=== PATIENT | male | born 1940 ===

== ENCOUNTER 2017-07-12 16:01 | Observation (INO) | payer BC, MEDICARE ==
--- NOTE | 2017-07-12 16:38 | ED ---
General Adult HPI - General Chief complaint: Extremity Problem,Nontraumatic Stated complaint: leg pain Time Seen by Provider: 07/12/17 16:27 Source: patient, RN notes reviewed Mode of arrival: ambulatory Limitations: no limitations - History of Present Illness Initial comments: Patient is a 76-year-old male who presents emergency room today with a chief complaint of right lower leg pain over the last 10 days. He does admit that it started on the anterior right dsouza. States that it progressed even behind the right knee. States worse with ambulation. Patient also admits that his had some shortness of breath that he feels when he is up and moving around. He does admit to recent travel over with a long car ride to [place] and [facility]. Patient states he saw his family doctor earlier today was advised coming to the emergency room to have a blood clot ruled out. Patient denies any other complaints at this time. He denies any pain. Denies any pleuritic pain. States is comfortable. Only has symptoms with ambulation. Patient denies any recent fever, chills, chest pain, back pain, abdominal pain, nausea or vomiting, numbness or tingling, dysuria or hematuria, constipation or diarrhea, headaches or visual changes, or any other complaints. - Related Data Home Medications Medication Instructions Recorded Confirmed glipiZIDE [Glucotrol] 5 mg PO AC-BRKFST 05/01/14 07/12/17 Amiodarone HCl [Amiodarone HCl] 100 mg PO DAILY 05/19/14 07/12/17 Aspirin EC [Ecotrin Low Dose] 81 mg PO DAILY 07/12/17 07/12/17 Atorvastatin [Lipitor] 40 mg PO HS 07/12/17 07/12/17 Ferrous Sulfate [Feosol] 325 mg PO DAILY 07/12/17 07/12/17 Hydrochlorothiazide 12.5 mg PO DAILY 07/12/17 07/12/17 Metoprolol Succinate (ER) [Toprol 50 mg PO DAILY 07/12/17 07/12/17 Xl] Prasugrel [Effient] 10 mg PO HS 07/12/17 07/12/17 hydrALAZINE HCL [Hydralazine HCl] 25 mg PO BID 07/12/17 07/12/17 Allergies Allergy/AdvReac Type Severity Reaction Status Date / Time No Known Allergies Allergy Verified 07/12/17 17:10 Review of Systems ROS Statement: Those systems with pertinent positive or pertinent negative responses have been documented in the HPI. ROS Other: All systems not noted in ROS Statement are negative. Past Medical History Past Medical History: Coronary Artery Disease (CAD), Diabetes Mellitus, Hypertension, Myocardial Infarction ([place]), Renal Disease Additional Past Medical History / Comment(s): ANEMIA, Last Myocardial Infarction Date:: 05-01-14 History of Any Multi-Drug Resistant Organisms: None Reported Past Surgical History: No Surgical Hx Reported, Heart Catheterization With Stent Date of Last Stent Placement:: 2013 Past Psychological History: No Psychological Hx Reported Smoking Status: Former smoker Past Alcohol Use History: None Reported Past Drug Use History: None Reported General Exam - General Exam Comments Initial Comments: General: The patient is awake and alert, in no distress, and does not appear acutely ill. Eye: Pupils are equal, round and reactive to light, extra-ocular movements are intact. No nystagmus. There is normal conjunctiva bilaterally. No signs of icterus. Ears, nose, mouth and throat: There are moist mucous membranes and no oral lesions. Neck: The neck is supple, there is no tenderness or JVD. Cardiovascular: There is a regular rate and rhythm. No murmur, rub or gallop is appreciated. Respiratory: Lungs are clear to auscultation, respirations are non-labored, breath sounds are equal. No wheezes, stridor, rales, or rhonchi. Musculoskeletal: Normal ROM, no tenderness. Strength 5/5. Sensation intact. Pulses equal bilaterally 2+. Neurological: A&O x 3. CN II-XII intact, There are no obvious motor or sensory deficits. Coordination appears grossly intact. Speech is normal. Skin: Skin is warm and dry and no rashes or lesions are noted. Psychiatric: Cooperative, appropriate mood & affect, normal judgment. Limitations: no limitations Course Vital Signs 07/12/17 16:16 Temperature 97.8 F Pulse Rate 76 Respiratory 16 Rate Blood Pressure 111/58 O2 Sat by Pulse 98 Oximetry EKG Findings - EKG Comments: EKG Findings:: EKG performed performed at [facility]: A 12-lead EKG was performed and interpreted by me as showing the following: Rate is 68, and rhythm is normal sinus. There are normal QRS complexes and normal R-wave progression. ST segments have no elevation or depression, and NE segments appear normal. Medical Decision Making - Medical Decision Making Patient labs been reviewed. His ultrasound is negative for any evidence of a DVT. He does admit to recent car ride and then these symptoms started shortly thereafter. Admits to some shortness of breath at times more with exertion. EKG and cardiac enzymes are negative. Chest x-ray unremarkable. Patient will be covered for possible PE started on heparin here in the emergency room case was discussed with the pharmacist Aly states that there is no concern with unfractionated heparin and kidney function. He does have a history of kidney disease. Unable to perform a CT angios of the chest to rule out PE. Have been started here in the ER. VQ scan will be ordered. Case discussed with attending physician Dr. Alejandra who did discuss case with admitting physician. Patient family aware the plan states understanding and are in agreement with the plan. - Lab Data Result diagrams: 07/12/17 16:45 07/12/17 16:45 Lab Results 07/12/17 07/12/17 07/12/17 Range/Units 16:45 16:45 16:45 WBC 12.6 H (3.8-10.6) k/uL RBC 4.34 (4.30-5.90) m/uL Hgb 13.0 (13.0-17.5) gm/dL Hct 39.0 (39.0-53.0) % MCV 89.8 (80.0-100.0) fL MCH 30.0 (25.0-35.0) pg MCHC 33.4 (31.0-37.0) g/dL RDW 13.9 (11.5-15.5) % Plt Count 258 (150-450) k/uL Neutrophils % 82 % Lymphocytes % 9 % Monocytes % 5 % Eosinophils % 2 % Basophils % 1 % Neutrophils # 10.3 H (1.3-7.7) k/uL Lymphocytes # 1.2 (1.0-4.8) k/uL Monocytes # 0.6 (0-1.0) k/uL Eosinophils # 0.3 (0-0.7) k/uL Basophils # 0.1 (0-0.2) k/uL PT (9.0-12.0) sec INR (<1.2) APTT (22.0-30.0) sec D-Dimer (<0.60) mg/L FEU Sodium 140 (137-145) mmol/L Potassium 5.6 H (3.5-5.1) mmol/L Chloride 108 H (98-107) mmol/L Carbon Dioxide 22 (22-30) mmol/L Anion Gap 10 mmol/L BUN 38 H (9-20) mg/dL Creatinine 2.80 H (0.66-1.25) mg/dL Est GFR (MDRD) Af Amer 27 (>60 ml/min/1.73 sqM) Est GFR (MDRD) Non-Af 22 (>60 ml/min/1.73 sqM) Glucose 115 H (74-99) mg/dL Calcium 9.1 (8.4-10.2) mg/dL Magnesium 1.9 (1.6-2.3) mg/dL Total Bilirubin 0.7 (0.2-1.3) mg/dL AST 19 (17-59) U/L ALT 34 (21-72) U/L Alkaline Phosphatase 62 (38-126) U/L Total Creatine Kinase 72 (55-170) U/L CK-MB (CK-2) 1.6 (0.0-2.4) ng/mL CK-MB (CK-2) Rel Index 2.2 Troponin I <0.012 (0.000-0.034) ng/mL NT-Pro-B Natriuret Pep pg/mL Total Protein 6.2 L (6.3-8.2) g/dL Albumin 3.6 (3.5-5.0) g/dL 07/12/17 07/12/17 Range/Units 16:45 16:45 WBC (3.8-10.6) k/uL RBC (4.30-5.90) m/uL Hgb (13.0-17.5) gm/dL Hct (39.0-53.0) % MCV (80.0-100.0) fL MCH (25.0-35.0) pg MCHC (31.0-37.0) g/dL RDW (11.5-15.5) % Plt Count (150-450) k/uL Neutrophils % % Lymphocytes % % Monocytes % % Eosinophils % % Basophils % % Neutrophils # (1.3-7.7) k/uL Lymphocytes # (1.0-4.8) k/uL Monocytes # (0-1.0) k/uL Eosinophils # (0-0.7) k/uL Basophils # (0-0.2) k/uL PT 10.8 (9.0-12.0) sec INR 1.1 (<1.2) APTT 25.7 (22.0-30.0) sec D-Dimer 0.83 H (<0.60) mg/L FEU Sodium (137-145) mmol/L Potassium (3.5-5.1) mmol/L Chloride (98-107) mmol/L Carbon Dioxide (22-30) mmol/L Anion Gap mmol/L BUN (9-20) mg/dL Creatinine (0.66-1.25) mg/dL Est GFR (MDRD) Af Amer (>60 ml/min/1.73 sqM) Est GFR (MDRD) Non-Af (>60 ml/min/1.73 sqM) Glucose (74-99) mg/dL Calcium (8.4-10.2) mg/dL Magnesium (1.6-2.3) mg/dL Total Bilirubin (0.2-1.3) mg/dL AST (17-59) U/L ALT (21-72) U/L Alkaline Phosphatase (38-126) U/L Total Creatine Kinase (55-170) U/L CK-MB (CK-2) (0.0-2.4) ng/mL CK-MB (CK-2) Rel Index Troponin I (0.000-0.034) ng/mL NT-Pro-B Natriuret Pep 675 pg/mL Total Protein (6.3-8.2) g/dL Albumin (3.5-5.0) g/dL Disposition Clinical Impression: Chronic kidney disease, Shortness of breath Narrative: Rule out PE Disposition: ADMITTED IP TO THIS HOSP Condition: Stable Referrals: Paloma Thomas MD [Primary Care Provider] - 1-2 days Time of Disposition: 18:07
[2017-07-12 17:01] LABS: Basophils # (A) 0.1 k/uL (0-0.2); Basophils % (A) 1 %; CH 29.3; CHCM 32.8; Eosinophils # (A) 0.3 k/uL (0-0.7); Eosinophils % (A) 2 %; Luc # (Auto) 0.19; Luc % (Auto) 2; Lymphocytes # (A) 1.2 k/uL (1.0-4.8); Lymphocytes % (A) 9 %; MCHC 33.4 g/dL (31.0-37.0); MCV 89.8 fL (80.0-100.0); Mean Platelet Volume 7.1; Monocytes # (A) 0.6 k/uL (0-1.0); Monocytes % (A) 5 %; Neutrophils # (A) 10.3 k/uL (1.3-7.7); Neutrophils % (A) 82 %; RBC 4.34 m/uL (4.30-5.90); RDW 13.9 % (11.5-15.5); WBC 12.6 k/uL (3.8-10.6); WBC (Perox) 12.88
--- NOTE | 2017-07-12 17:03 | XR ---
EXAMINATION TYPE: XR chest 2V DATE OF EXAM: 07/12/2017 COMPARISON: 05/21/2014 HISTORY: Chest pain TECHNIQUE: Frontal and lateral views of the chest are obtained. FINDINGS: There is no heart failure nor confluent pneumonic infiltrate. Heart size is normal. No sig n of pleural effusion. The bony thorax is intact. IMPRESSION: No active cardiopulmonary disease. There is clearing of the mild heart failure and pleur al effusions compared to last exam.
[2017-07-12 17:11] LABS: Calcium 9.1 mg/dL (8.4-10.2); Magnesium 1.9 mg/dL (1.6-2.3); Potassium 5.6 mmol/L (3.5-5.1); Total Bilirubin 0.7 mg/dL (0.2-1.3); Total Protein 6.2 g/dL (6.3-8.2)
[2017-07-12 17:20] LABS: Creatine Kinase 72 U/L (55-170)
[2017-07-12 17:34] LABS: Creatine Kinase MB 1.6 ng/mL (0.0-2.4); Troponin I <0.012 ng/mL (0.000-0.034)
--- NOTE | 2017-07-12 17:37 | US ---
EXAMINATION TYPE: US venous doppler duplex LE RT DATE OF EXAM: 07/12/2017 5:31 PM COMPARISON: NONE CLINICAL HISTORY: Pain. Rt leg pain SIDE PERFORMED: Right TECHNIQUE: The lower extremity deep venous system is examined utilizing real time linear array sonog vinh with graded compression, doppler sonography and color-flow sonography. VESSELS IMAGED: External Iliac Vein (EIV) Common Femoral Vein Deep Femoral Vein Greater Saphenous Vein * Femoral Vein Popliteal Vein Small Saphenous Vein * Proximal Calf Veins (* superficial vessels) Right Leg: Negative for DVT No evidence of DVT right leg IMPRESSION: Normal exam. No evidence of deep venous thrombosis in the right leg.
[2017-07-12 17:39] LABS: INR 1.1 (<1.2); Partial Thromboplastin Time 25.7 sec (22.0-30.0); Prothrombin Time 10.8 sec (9.0-12.0)
[2017-07-12] MEDS ORDERED: HEPARIN SODIUM,PORCINE/D5W PMX 25,000 UNIT in DEXTROSE/WATER 1 500ML.BAG IV SCH (18:24)
[2017-07-12] MEDS ORDERED: HEPARIN SODIUM,PORCINE 5,000 UNIT/ML 1 ML VIAL IV STA (18:24)
[2017-07-12] MEDS ORDERED: NALOXONE 0.4 MG/ML 1 ML VIAL IV PRN (18:28)
[2017-07-12] MEDS ORDERED: LORazepam 2 MG/ML INJ IV PRN (18:28)
[2017-07-12] MEDS ORDERED: ONDANSETRON 4 MG/2 ML VIAL IVP PRN (18:28)
[2017-07-12] MEDS ORDERED: ACETAMINOPHEN TAB 325 MG TAB PO PRN (18:28)
[2017-07-12] MEDS ORDERED: HYDROcodone/APAP 5-325MG 1 EACH TAB PO PRN (18:28)
[2017-07-12 20:30] LABS: Glucose,Whole Blood 79 mg/dL (75-99)
[2017-07-12 22:41] VITALS: PULSE 62; RESP 16
[2017-07-13 01:22] LABS: Creatine Kinase 62 U/L (55-170)
[2017-07-13 01:36] LABS: Creatine Kinase MB 1.4 ng/mL (0.0-2.4); Troponin I <0.012 ng/mL (0.000-0.034)
[2017-07-13 05:30] LABS: Basophils # (A) 0.1 k/uL (0-0.2); Basophils % (A) 1 %; CH 30.1; CHCM 33.6; Eosinophils # (A) 0.4 k/uL (0-0.7); Eosinophils % (A) 4 %; HDW 2.56; HGB 12.1 gm/dL (13.0-17.5); Luc # (Auto) 0.15; Luc % (Auto) 2; Lymphocytes # (A) 1.5 k/uL (1.0-4.8); Lymphocytes % (A) 17 %; MCH 29.3 pg (25.0-35.0); MCHC 32.6 g/dL (31.0-37.0); MCV 89.8 fL (80.0-100.0); Mean Platelet Volume 7.2; Monocytes # (A) 0.5 k/uL (0-1.0); Monocytes % (A) 5 %; Neutrophils # (A) 6.6 k/uL (1.3-7.7); Neutrophils % (A) 71 %; RBC 4.11 m/uL (4.30-5.90); RDW 14.9 % (11.5-15.5); WBC 9.2 k/uL (3.8-10.6); WBC (Perox) 9.13
[2017-07-13 05:57] LABS: Creatine Kinase 63 U/L (55-170)
[2017-07-13 06:01] LABS: Calcium 8.6 mg/dL (8.4-10.2); Potassium 4.9 mmol/L (3.5-5.1); Total Bilirubin 0.4 mg/dL (0.2-1.3); Total Protein 5.3 g/dL (6.3-8.2)
[2017-07-13 06:11] LABS: Creatine Kinase MB 1.4 ng/mL (0.0-2.4); Troponin I <0.012 ng/mL (0.000-0.034)
--- NOTE | 2017-07-13 08:09 | NM ---
EXAMINATION TYPE: NM pul vent and perfuse DATE OF EXAM: 07/13/2017 COMPARISON: NONE HISTORY: Chest pain TECHNIQUE: Utilizing inhalation of 67.2 mCi Tc 99m DTPA aerosol and intravenous injection of 5.52 mC i of Tc 99m MAA, ventilation and perfusion images are acquired post injection in multiple projections . FINDINGS: Normal radiotracer distribution is noted in the lungs. There is no evidence of mismatched defects. IMPRESSION: THIS EXAMINATION IS NEGATIVE.
[2017-07-13 08:48] LABS: Glucose,Whole Blood 138 mg/dL (75-99)
[2017-07-13 08:49] VITALS: BP 131/64; TEMP 98
--- NOTE | 2017-07-13 11:54 | P.HPIM ---
History of Present Illness 76-year-old gentleman was sent to the hospital by primary care physician because of his pain in the right leg with concern of DVT. Patient also had had elevated d-dimer patient was empirically started on heparin Doppler of the right lower leg is negative for DVT and patient also had a VQ scan which was negative for DVT. Patient has poor renal function stage 3-4 chronic kidney disease from diabetes medicine diabetic nephropathy. Patient is on very low- dose of hydrochlorothiazide which is not beneficial considering his kidney dysfunction because of which I'm discontinued and that patient may not need hydralazine either. Patient is on the oral hypoglycemic agents probably better to switch to insulin concerning his chronic kidney disease with concerns of hypoglycemia. I was told by the nursing staff patient has dark stools for 6 months although his hemoglobin is 12 came down from 13 this drop in hemoglobin is secondary to hemodilution affect and patient also had 1 bowel movement every day and expected have multiple bowel movements a day if he had a GI bleed. patient appears to be a iron supplementation as per the ER documentation which can make his stool dark Clinically I do not believe have patient has any overt GI bleed can follow with primary care physician repeat basic metabolic profile and CBC as an outpatient.his hemoglobin is around 12-13 in spite of these.stools for 12 months.considering his kidney dysfunction patient will benefit from lisinopril once his kidney function stabilizes.his right leg pain completely resolved Review of Systems REVIEW OF SYSTEMS: CONSTITUTIONAL: No fever, no malaise, no fatigue. HEENT: No recent visual problems or hearing problems. Denied any sore throat. CARDIOVASCULAR: No chest pain, orthopnea, PND, no palpitations, no syncope. PULMONARY: No shortness of breath, no cough, no hemoptysis. GASTROINTESTINAL: No diarrhea, no nausea, no vomiting, no abdominal pain. Normoactive bowel sounds. NEUROLOGICAL: No headaches, no weakness, no numbness. HEMATOLOGICAL: Denies any bleeding or petechiae. GENITOURINARY: Denies any burning micturition, frequency, or urgency. MUSCULOSKELETAL/RHEUMATOLOGICAL:as described in HPI ENDOCRINE: Denies any polyuria or polydipsia. The rest of the 14-point review of systems is negative. Past Medical History Past Medical History: Coronary Artery Disease (CAD), Cancer, Diabetes Mellitus, Hypertension, Myocardial Infarction ([place]), Renal Disease Additional Past Medical History / Comment(s): ANEMIA,gout, basal cell skin cancer Last Myocardial Infarction Date:: 05-01-14 History of Any Multi-Drug Resistant Organisms: None Reported Past Surgical History: Heart Catheterization With Stent, Hernia Repair, Tonsillectomy Additional Past Surgical History / Comment(s): colonoscpy, upper dental implant , total 7 cardiac stents. santy ing hernia repair.sx santy eye for detatched retinas , skin cancer removed from ear lobe Past Anesthesia/Blood Transfusion Reactions: No Reported Reaction Date of Last Stent Placement:: 2013 Smoking Status: Current some day smoker - Past Family History Mother Family Medical History: Coronary Artery Disease (CAD) Additional Family Medical History / Comment(s): heart disease Father Family Medical History: Cancer, Myocardial Infarction ([place]) Additional Family Medical History / Comment(s): lung,throat,tongue cancer Medications and Allergies Home Medications Medication Instructions Recorded Confirmed Type glipiZIDE [Glucotrol] 5 mg PO AC-BRKFST 05/01/14 07/12/17 History Amiodarone HCl [Amiodarone HCl] 100 mg PO DAILY 05/19/14 07/12/17 History Aspirin EC [Ecotrin Low Dose] 81 mg PO DAILY 07/12/17 07/12/17 History Atorvastatin [Lipitor] 40 mg PO HS 07/12/17 07/12/17 History Ferrous Sulfate [Feosol] 325 mg PO DAILY 07/12/17 07/12/17 History Metoprolol Succinate (ER) [Toprol 50 mg PO DAILY 07/12/17 07/12/17 History Xl] Prasugrel [Effient] 10 mg PO HS 07/12/17 07/12/17 History hydrALAZINE HCL [Hydralazine HCl] 25 mg PO BID 07/12/17 07/12/17 History Allergies Allergy/AdvReac Type Severity Reaction Status Date / Time No Known Allergies Allergy Verified 07/12/17 17:10 Physical Exam Vitals: Vital Signs Temp Pulse Pulse Resp BP BP Pulse Ox 07/13/17 08:00 62 16 07/13/17 07:00 98.0 F 60 18 131/64 97 07/12/17 22:00 16 07/12/17 19:10 97.4 F L 62 16 145/73 98 07/12/17 18:51 98.6 F 67 18 139/69 98 07/12/17 16:16 97.8 F 76 16 111/58 98 Intake and Output 07/12/17 07/13/17 07/13/17 22:59 06:59 14:59 Intake Total 238.68 Output Total 300 300 Balance -61.32 -300 Intake: Intake, IV Titration 238.68 Amount Heparin Sodium,Porcine/ 238.68 D5w Pmx 25,000 unit In Dextrose/Water 1 500ml. bag @ 18 UNITS/KG/HR 35.1 mls/hr IV .[id number] [facility] Rx#:[id number] Output: Urine 300 300 Other: Voiding Method Urinal Urinal Weight 97.522 kg 97.522 kg Patient Weight 07/14/17 06:59 Weight 97.522 kg PHYSICAL EXAMINATION: GENERAL: The patient is alert and oriented x3, not in any acute distress. Well developed, well nourished. HEENT: Pupils are round and equally reacting to light. EOMI. No scleral icterus. No conjunctival pallor. Normocephalic, atraumatic. No pharyngeal erythema. No thyromegaly. CARDIOVASCULAR: S1 and S2 present. No murmurs, rubs, or gallops. PULMONARY: Chest is clear to auscultation, no wheezing or crackles. ABDOMEN: Soft, nontender, nondistended, normoactive bowel sounds. No palpable organomegaly. MUSCULOSKELETAL: No joint swelling or deformity. EXTREMITIES: No cyanosis, clubbing, or pedal edema. NEUROLOGICAL: Gross neurological examination did not reveal any focal deficits. SKIN: No rashes. Results CBC & Chem 7: 07/13/17 04:55 07/13/17 04:53 Labs: Abnormal Lab Results - Last 24 Hours (Table) 07/12/17 07/12/17 07/12/17 Range/Units 16:45 16:45 16:45 WBC 12.6 H (3.8-10.6) k/uL RBC (4.30-5.90) m/uL Hgb (13.0-17.5) gm/dL Hct (39.0-53.0) % Neutrophils # 10.3 H (1.3-7.7) k/uL APTT (22.0-30.0) sec D-Dimer 0.83 H (<0.60) mg/L FEU Potassium 5.6 H (3.5-5.1) mmol/L Chloride 108 H (98-107) mmol/L Carbon Dioxide (22-30) mmol/L BUN 38 H (9-20) mg/dL Creatinine 2.80 H (0.66-1.25) mg/dL Glucose 115 H (74-99) mg/dL POC Glucose (mg/dL) (75-99) mg/dL Total Protein 6.2 L (6.3-8.2) g/dL Albumin (3.5-5.0) g/dL 07/13/17 07/13/17 07/13/17 Range/Units 00:29 04:53 04:55 WBC (3.8-10.6) k/uL RBC 4.11 L (4.30-5.90) m/uL Hgb 12.1 L (13.0-17.5) gm/dL Hct 37.0 L (39.0-53.0) % Neutrophils # (1.3-7.7) k/uL APTT >200.0 H* (22.0-30.0) sec D-Dimer (<0.60) mg/L FEU Potassium (3.5-5.1) mmol/L Chloride 110 H (98-107) mmol/L Carbon Dioxide 20 L (22-30) mmol/L BUN 39 H (9-20) mg/dL Creatinine 2.60 H (0.66-1.25) mg/dL Glucose (74-99) mg/dL POC Glucose (mg/dL) (75-99) mg/dL Total Protein 5.3 L (6.3-8.2) g/dL Albumin 3.0 L (3.5-5.0) g/dL 07/13/17 07/13/17 07/13/17 Range/Units 08:34 08:34 08:43 WBC (3.8-10.6) k/uL RBC (4.30-5.90) m/uL Hgb (13.0-17.5) gm/dL Hct (39.0-53.0) % Neutrophils # (1.3-7.7) k/uL APTT 109.6 H* (22.0-30.0) sec D-Dimer 0.66 H (<0.60) mg/L FEU Potassium (3.5-5.1) mmol/L Chloride (98-107) mmol/L Carbon Dioxide (22-30) mmol/L BUN (9-20) mg/dL Creatinine (0.66-1.25) mg/dL Glucose (74-99) mg/dL POC Glucose (mg/dL) 138 H (75-99) mg/dL Total Protein (6.3-8.2) g/dL Albumin (3.5-5.0) g/dL Assessment and Plan Plan: #1 pain in the right leg: Probably from muscle strain orf osteoarthritis, ruled out DVT and rule out pulmonary embolism. Patient will be discharged today #2 type 2 diabetes mellitus: Management as mentioned in the interval history. #3 hypertension next and #4 diabetic nephropathy chronic kidney disease stage 3- 4 #5.dark stools: No evidence of GI bleed at this timeclinically, related to iron supplementation. Hyperlipidemia #6 coronary artery disease
--- NOTE | 2017-07-13 11:55 | P.DS ---
Providers Date of admission: 07/12/17 18:16 Attending physician: Calderon Cummins Primary care physician: Paloma Thomas Hospital Course: please refer to my HPI Patient Condition at Discharge: Stable Plan - Discharge Summary New Discharge Prescriptions: Discontinued Hydrochlorothiazide 12.5 mg PO DAILY No Action glipiZIDE [Glucotrol] 5 mg PO [facility] Amiodarone HCl [Amiodarone HCl] 100 mg PO DAILY Aspirin EC [Ecotrin Low Dose] 81 mg PO DAILY Prasugrel [Effient] 10 mg PO HS Atorvastatin [Lipitor] 40 mg PO HS Metoprolol Succinate (ER) [Toprol Xl] 50 mg PO DAILY Ferrous Sulfate [Feosol] 325 mg PO DAILY hydrALAZINE HCL [Hydralazine HCl] 25 mg PO BID Discharge Medication List glipiZIDE [Glucotrol] 5 mg PO -BRKFST 05/01/14 [History] Amiodarone HCl [Amiodarone HCl] 100 mg PO DAILY 05/19/14 [History] Aspirin EC [Ecotrin Low Dose] 81 mg PO DAILY 07/12/17 [History] Atorvastatin [Lipitor] 40 mg PO HS 07/12/17 [History] Ferrous Sulfate [Feosol] 325 mg PO DAILY 07/12/17 [History] Metoprolol Succinate (ER) [Toprol Xl] 50 mg PO DAILY 07/12/17 [History] Prasugrel [Effient] 10 mg PO HS 07/12/17 [History] hydrALAZINE HCL [Hydralazine HCl] 25 mg PO BID 07/12/17 [History] Follow up Appointment(s)/Referral(s): Paloma Thomas MD [Primary Care Provider] - 3 Days Patient Instructions/Handouts: Dyspnea (GEN) Discharge Disposition: HOME SELF-CARE
== END 2017-07-13 11:30 | disposition home or self-care (01) ==
LOC: EC 16:01 → 5MS5E 18:16
PROVIDERS: ADMIT Hospitalist; ATTEND Hospitalist
DX: M79.661 Pain in right lower leg (principal); R06.02 Shortness of breath; I25.2 Old myocardial infarction; E11.22 Type 2 diabetes mellitus with diabetic chronic kidney disease; I25.10 Atherosclerotic heart disease of native coronary artery without angina pectoris; N18.4 Chronic kidney disease, stage 4 (severe); I12.9 Hypertensive chronic kidney disease with stage 1 through stage 4 chronic kidney disease, or unspecified chronic kidney disease; E11.21 Type 2 diabetes mellitus with diabetic nephropathy; M10.9 Gout, unspecified; D64.9 Anemia, unspecified; F17.200 Nicotine dependence, unspecified, uncomplicated; Z95.5 Presence of coronary angioplasty implant and graft; Z79.899 Other long term (current) drug therapy; Z79.82 Long term (current) use of aspirin; Z79.84 Long term (current) use of oral hypoglycemic drugs; Z79.02 Long term (current) use of antithrombotics/antiplatelets; Z85.828 Personal history of other malignant neoplasm of skin; Z82.49 Family history of ischemic heart disease and other diseases of the circulatory system; R19.5 Other fecal abnormalities
CPT/HCPCS: 96366 ×2; 96376; 96365; 99285; 36415; 93005; 85379 ×2; 83880; 80061; 80053 ×2; 82550 ×2; 82553 ×2; 83735; 84484 ×2; 85025 ×2; 85610; 85730 ×2; 71020; 93971; 78582; G0378 ×2; A9540; A9567; J1644 ×2